=== PATIENT | female | born 1945 | race Two or more races ===

== ENCOUNTER 2025-01-24 18:34 | Inpatient (IN) | payer MEDICARE ==
[~2025-01-24] VITALS: Ht 170.2 cm; Wt 59.0 kg
[2025-01-24] MEDS ORDERED: ATOR10TA PO (18:57)
[2025-01-24] MEDS ORDERED: ACET325C7 PO (18:57)
[2025-01-24] MEDS ORDERED: ACET-2605 PO (18:57)
[2025-01-24] MEDS ORDERED: LIOT5TAB7 PO (18:57)
[2025-01-24] MEDS ORDERED: BISA10SU61 RC (18:57)
[2025-01-24] MEDS ORDERED: SULF1TAB48 PO (18:57)
[2025-01-24] MEDS ORDERED: AMLO-212 PO (18:57)
[2025-01-24] MEDS ORDERED: NA P133E RC (18:57)
[2025-01-24] MEDS ORDERED: INSU100V39 SQ (18:58)
[2025-01-24] MEDS ORDERED: ONDA-104 PO (19:02)
[2025-01-24] MEDS ORDERED: MEGE400O5 PO (19:02)
[2025-01-24] MEDS ORDERED: LOSA25TA27 PO (19:02)
[2025-01-24] MEDS ORDERED: EMPA25TA PO (19:02)
[2025-01-24] MEDS ORDERED: LIDOCAINE 4% PATCH TOP (19:02)
[2025-01-24] MEDS ORDERED: ZINC OXIDE TOP (19:02)
[2025-01-24] MEDS ORDERED: LEVO125T8 PO (19:02)
[2025-01-24] MEDS ORDERED: MAGN400O6 PO (19:02)
[2025-01-24] MEDS ORDERED: POLY17PO4 PO (19:02)
[2025-01-24] MEDS ORDERED: ESCI5TAB PO (19:02)
[2025-01-24 19:12] LABS: BASOPHILS % (AUTO) 0.5 % (0.0-2.0); EOSINOPHILS % (AUTO) 0.7 % (0.0-7.0); HEMATOCRIT 32.5 % (31.2-41.9); HEMOGLOBIN 11.2 g/dL (10.9-14.3); LYMPHOCYTES # (AUTO) 0.8 K/uL (0.8-4.8); LYMPHOCYTES % (AUTO) 23.2 % (20.5-51.5); MEAN CORPUSCULAR HEMOGLOBIN 29.4 uug (24.7-32.8); MEAN CORPUSCULAR HGB CONC 35 g/dL (32.3-35.6); MEAN CORPUSCULAR VOLUME 85.1 fL (75.5-95.3); MONOCYTES # (AUTO) 0.2 K/uL (0.1-1.30); MONOCYTES % (AUTO) 5.9 % (0.0-11.0); NEUTROPHILS # (AUTO) 2.3 K/uL (1.8-8.9); NEUTROPHILS % (AUTO) 69.7 % (38.5-71.5); PLATELET COUNT (AUTO) 100 K/uL (179-408); RED BLOOD CELL COUNT(AUTO) 3.82 MIL/uL (3.63-4.92); RED CELL DISTRIBUTION WIDTH 14.7 % (12.3-17.7); WHITE BLOOD COUNT (AUTO) 3.3 K/uL (3.8-11.8)
[2025-01-24 19:15] LABS: DIFFERENTIAL COMMENT 1
[2025-01-24 19:18] LABS: CALCIUM 8.1 mg/dL (8.5-10.1); CARBON DIOXIDE 28 mmol/L (21-32); CHLORIDE 103 mmol/L (98-107); CREATININE 1.4 mg/dL (0.6-1.3); GLUCOSE 187 mg/dL (74-106); POTASSIUM 4.1 mmol/L (3.5-5.1); SODIUM SERUM 136 mmol/L (136-145); UREA NITROGEN, BLOOD 25 mg/dL (7-18)
[2025-01-24] MEDS: IV NS 1000 ML 1,000 ML IV STA (19:29)
[2025-01-24 19:31] LABS: ALANINE AMINOTRANSFERASE 20 U/L (14-59); ALBUMIN 3.2 g/dL (3.4-5.0); ALKALINE PHOSPHATASE 93 U/L (50-136); ASPARTATE AMINOTRANSFERASE 12 U/L (15-37); BILIRUBIN,DIRECT 0.3 mg/dL (0.0-0.2); BILIRUBIN,TOTAL 0.6 mg/dL (0.2-1.0); NT-PRO BNP 654 pg/mL (0-125); TOTAL PROTEIN, SERUM 6.2 g/dL (6.4-8.2)
[2025-01-24 20:36] LABS: *BILIRUBIN,URIN NEGATIVE (NEGATIVE); *BLOOD, URINE 1+ (NEGATIVE); *CLARITY,URINE SLIGHTLY CLOUDY (CLEAR); *COLOR,URINE YELLOW (YELLOW); *KETONES,URINE NEGATIVE (NEGATIVE); *PROTEIN,URINE 3+ (NEGATIVE); LEUKOCYTE ESTERASE ,URINE 1+ (NEGATIVE); NITRITE, URINE NEGATIVE (NEGATIVE); UGLUCOSE 1+ (NEGATIVE)
[2025-01-24] MEDS ORDERED: DEXTROSE 50% 50 ML DISP.SYRIN IV PRN (20:45)
[2025-01-24] MEDS ORDERED: ONDANSETRON 4 MG/2 ML VIAL IV PRN (20:45)
[2025-01-24] MEDS ORDERED: MAGNESIUM HYDROXIDE 30 ML LIQUID UDC PO PRN (20:45)
[2025-01-24] MEDS ORDERED: ACETAMINOPHEN 325 MG TABLET PO PRN (20:45)
[2025-01-24 20:52] LABS: BACTERIA,URINE FEW /HPF (NONE SEEN); RBC,URINE 0-3 /HPF (0-3); SQUAMOUS EPITHELIAL CELL,UR MODERATE /HPF (NONE SEEN); WBC,URINE 50-80 /HPF (0-3); YEAST,URINE MANY /HPF (NONE SEEN)
[2025-01-24 22:10] VITALS: BP 171/61; TEMP 97.3; O2SAT 98
[2025-01-24] MEDS ORDERED: CEFTRIAXONE /D5W 50ML IVPB **ER PYXIS IV ONE (23:14)
[2025-01-24] MEDS ORDERED: Medication Not On Formulary EA (Acetaminophen (Tylenol) 650 MG) PO SCH (23:30)
[2025-01-24] MEDS: CEFTRIAXONE 1 G in IV DEXTROSE 5% 50 ML IV SCH (23:43)
[2025-01-24] MEDS: BLOOD SUGAR DIAGNOSTIC 1 EACH STRIP VI SCH (23:45)
[2025-01-25] MEDS: IV D5 1/2 NS 1000 ML 1,000 ML IV PRN (03:30)
[2025-01-25 06:09] VITALS: BP 159/62; TEMP 97.9; O2SAT 93
[2025-01-25 07:07] LABS: BASOPHILS % (AUTO) 0.7 % (0.0-2.0); EOSINOPHILS % (AUTO) 0.8 % (0.0-7.0); HEMATOCRIT 34.6 % (31.2-41.9); LYMPHOCYTES # (AUTO) 0.9 K/uL (0.8-4.8); LYMPHOCYTES % (AUTO) 21.4 % (20.5-51.5); MEAN CORPUSCULAR HEMOGLOBIN 29.3 uug (24.7-32.8); MEAN CORPUSCULAR HGB CONC 35 g/dL (32.3-35.6); MEAN CORPUSCULAR VOLUME 84.7 fL (75.5-95.3); MONOCYTES # (AUTO) 0.2 K/uL (0.1-1.30); MONOCYTES % (AUTO) 5.4 % (0.0-11.0); NEUTROPHILS # (AUTO) 2.9 K/uL (1.8-8.9); NEUTROPHILS % (AUTO) 71.7 % (38.5-71.5); PLATELET COUNT (AUTO) 106 K/uL (179-408); RED BLOOD CELL COUNT(AUTO) 4.09 MIL/uL (3.63-4.92); RED CELL DISTRIBUTION WIDTH 14.7 % (12.3-17.7)
[2025-01-25 07:15] LABS: DIFFERENTIAL COMMENT 1
[2025-01-25 07:21] LABS: ALANINE AMINOTRANSFERASE 15 U/L (14-59); ALKALINE PHOSPHATASE 95 U/L (50-136); ASPARTATE AMINOTRANSFERASE 15 U/L (15-37); BILIRUBIN,TOTAL 0.6 mg/dL (0.2-1.0); CARBON DIOXIDE 26 mmol/L (21-32); CHLORIDE 103 mmol/L (98-107); CREATININE 1.2 mg/dL (0.6-1.3); GLUCOSE 129 mg/dL (74-106); PHOSPHOROUS 2.6 mg/dL (2.5-4.9); POTASSIUM 3.8 mmol/L (3.5-5.1); SODIUM SERUM 136 mmol/L (136-145); TOTAL PROTEIN, SERUM 6.2 g/dL (6.4-8.2); UREA NITROGEN, BLOOD 20 mg/dL (7-18)
[2025-01-25] MEDS: EMPAGLIFLOZIN 25 MG TABLET PO SCH (09:00)
[2025-01-25] MEDS: LOSARTAN POTASSIUM 25 MG TABLET PO SCH (09:00)
[2025-01-25] MEDS: MIRALAX 17 GM POWD.PACK PO SCH (09:00)
[2025-01-25] MEDS: AMLODIPINE 5 MG TABLET PO SCH (09:00)
[2025-01-25] MEDS: LEVOTHYROXINE SODIUM 125 MCG TABLET PO SCH (09:00)
[2025-01-25] MEDS: LIOTHYRONINE SODIUM 5 MCG TABLET PO SCH (09:00)
[2025-01-25] MEDS: PANTOPRAZOLE SODIUM 40 MG VIAL IV SCH (09:36)
[2025-01-25] MEDS ORDERED: ACET-73 PO (10:39)
[2025-01-25] MEDS ORDERED: POVI3780 TP (10:45)
[2025-01-25] MEDS ORDERED: POVI37802 TP (10:48)
[2025-01-25] MEDS ORDERED: LACT-47 PO (10:49)
[2025-01-25] MEDS ORDERED: MELA3CAP2 PO (10:55)
[2025-01-25] MEDS ORDERED: ONDA4TAB11 PO (10:59)
[2025-01-25] MEDS ORDERED: QUET25TA36 PO (11:01)
[2025-01-25 11:03] VITALS: BP 175/71; TEMP 98; O2SAT 99
[2025-01-25] MEDS: hydrALAZINE HCL 20 MG/1 ML VIAL IV PRN (11:51)
[2025-01-25] MEDS: INSULIN REGULAR, HUMAN 1000 UNIT/10 ML VIAL SQ PRN (13:36)
[2025-01-25 14:00] VITALS: BP 122/65; O2SAT 95
[2025-01-25 16:23] VITALS: BP 115/54; TEMP 97.6; O2SAT 97
[2025-01-25 19:35] VITALS: BP 92/44; TEMP 97.9; O2SAT 98
[2025-01-25] MEDS: ESCITALOPRAM OXALATE 10 MG TABLET PO SCH (20:08)
[2025-01-26 03:43] LABS: *BILIRUBIN,URIN NEGATIVE (NEGATIVE); *BLOOD, URINE 2+ (NEGATIVE); *CLARITY,URINE TURBID (CLEAR); *COLOR,URINE YELLOW (YELLOW); *KETONES,URINE NEGATIVE (NEGATIVE); *PROTEIN,URINE 3+ (NEGATIVE); LEUKOCYTE ESTERASE ,URINE 3+ (NEGATIVE); NITRITE, URINE NEGATIVE (NEGATIVE); PH,URINE 6.5 (5.0-8.0); UGLUCOSE TRACE (NEGATIVE)
[2025-01-26 03:48] LABS: WBC,URINE 20-50 /HPF (0-3)
[2025-01-26 03:49] LABS: BACTERIA,URINE MODERATE /HPF (NONE SEEN); MUCUS,URINE MANY /LPF (0-FEW); SQUAMOUS EPITHELIAL CELL,UR FEW /HPF (NONE SEEN)
[2025-01-26 05:11] VITALS: BP 136/67; TEMP 97.9; O2SAT 98
[2025-01-26 07:22] LABS: BASOPHILS % (AUTO) 0.5 % (0.0-2.0); EOSINOPHILS % (AUTO) 0.5 % (0.0-7.0); HEMATOCRIT 31.1 % (31.2-41.9); HEMOGLOBIN 10.9 g/dL (10.9-14.3); LYMPHOCYTES # (AUTO) 0.7 K/uL (0.8-4.8); LYMPHOCYTES % (AUTO) 17.5 % (20.5-51.5); MEAN CORPUSCULAR HEMOGLOBIN 29.2 uug (24.7-32.8); MEAN CORPUSCULAR HGB CONC 35 g/dL (32.3-35.6); MEAN CORPUSCULAR VOLUME 83.1 fL (75.5-95.3); MONOCYTES # (AUTO) 0.2 K/uL (0.1-1.30); MONOCYTES % (AUTO) 4.6 % (0.0-11.0); NEUTROPHILS # (AUTO) 3.2 K/uL (1.8-8.9); NEUTROPHILS % (AUTO) 76.9 % (38.5-71.5); PLATELET COUNT (AUTO) 91 K/uL (179-408); RED BLOOD CELL COUNT(AUTO) 3.74 MIL/uL (3.63-4.92); RED CELL DISTRIBUTION WIDTH 14.8 % (12.3-17.7); WHITE BLOOD COUNT (AUTO) 4.2 K/uL (3.8-11.8)
[2025-01-26 07:31] LABS: CALCIUM 7.7 mg/dL (8.5-10.1); CARBON DIOXIDE 25 mmol/L (21-32); CHLORIDE 102 mmol/L (98-107); CREATININE 1.2 mg/dL (0.6-1.3); GLUCOSE 112 mg/dL (74-106); POTASSIUM 3.6 mmol/L (3.5-5.1); SODIUM SERUM 134 mmol/L (136-145); UREA NITROGEN, BLOOD 17 mg/dL (7-18)
[2025-01-26 07:36] LABS: DIFFERENTIAL COMMENT 1
[2025-01-26 08:00] VITALS: TEMP 93.8
[2025-01-26 12:00] VITALS: TEMP 90.9
[2025-01-26 16:00] VITALS: BP 139/61; TEMP 98; O2SAT 98
[2025-01-26 19:20] VITALS: BP 132/68; TEMP 97.8; O2SAT 98
[2025-01-27 01:13] LABS: BASOPHILS % (AUTO) 0.4 % (0.0-2.0); EOSINOPHILS % (AUTO) 0.5 % (0.0-7.0); HEMATOCRIT 31.2 % (31.2-41.9); HEMOGLOBIN 10.7 g/dL (10.9-14.3); LYMPHOCYTES # (AUTO) 0.8 K/uL (0.8-4.8); LYMPHOCYTES % (AUTO) 16.9 % (20.5-51.5); MEAN CORPUSCULAR HEMOGLOBIN 28.8 uug (24.7-32.8); MEAN CORPUSCULAR HGB CONC 34 g/dL (32.3-35.6); MEAN CORPUSCULAR VOLUME 83.7 fL (75.5-95.3); MONOCYTES # (AUTO) 0.3 K/uL (0.1-1.30); MONOCYTES % (AUTO) 5.9 % (0.0-11.0); NEUTROPHILS # (AUTO) 3.7 K/uL (1.8-8.9); NEUTROPHILS % (AUTO) 76.3 % (38.5-71.5); PLATELET COUNT (AUTO) 85 K/uL (179-408); RED BLOOD CELL COUNT(AUTO) 3.73 MIL/uL (3.63-4.92); RED CELL DISTRIBUTION WIDTH 14.5 % (12.3-17.7); WHITE BLOOD COUNT (AUTO) 4.9 K/uL (3.8-11.8)
[2025-01-27 01:26] LABS: DIFFERENTIAL COMMENT 1
[2025-01-27] MEDS: PANTOPRAZOLE SODIUM 40 MG TABLET.DR PO SCH (06:13)
[2025-01-27 07:08] LABS: CALCIUM 7.8 mg/dL (8.5-10.1); CARBON DIOXIDE 25 mmol/L (21-32); CHLORIDE 101 mmol/L (98-107); CREATININE 1.2 mg/dL (0.6-1.3); GLUCOSE 125 mg/dL (74-106); POTASSIUM 3.7 mmol/L (3.5-5.1); SODIUM SERUM 131 mmol/L (136-145); UREA NITROGEN, BLOOD 16 mg/dL (7-18)
[2025-01-27 07:24] VITALS: BP 132/68; TEMP 97.8; O2SAT 98
[2025-01-27 09:41] VITALS: BP 115/61; TEMP 98; O2SAT 98
[2025-01-27] MEDS ORDERED: PROPOFOL 200 MG/20 ML BOTTLE ONE (10:00)
[2025-01-27] MEDS ORDERED: IV NORMAL SALINE 500 ML IV ONE (11:30)
[2025-01-27 11:34] VITALS: BP 109/41; TEMP 97.4; O2SAT 99
[2025-01-27 13:33] VITALS: O2SAT 96
[2025-01-27 15:52] VITALS: BP 113/63; TEMP 98; O2SAT 99
[2025-01-27 19:55] VITALS: BP 120/58; TEMP 98.3; O2SAT 99
[2025-01-27] MEDS: DONEPEZIL 5 MG TABLET PO SCH (20:48)
[2025-01-28 05:31] VITALS: BP 122/62; TEMP 98; O2SAT 95
[2025-01-28 06:24] LABS: BASOPHILS % (AUTO) 0.3 % (0.0-2.0); EOSINOPHILS % (AUTO) 0.2 % (0.0-7.0); HEMATOCRIT 32.1 % (31.2-41.9); HEMOGLOBIN 11.1 g/dL (10.9-14.3); LYMPHOCYTES # (AUTO) 0.8 K/uL (0.8-4.8); LYMPHOCYTES % (AUTO) 16.3 % (20.5-51.5); MEAN CORPUSCULAR HEMOGLOBIN 29.4 uug (24.7-32.8); MEAN CORPUSCULAR HGB CONC 35 g/dL (32.3-35.6); MEAN CORPUSCULAR VOLUME 84.7 fL (75.5-95.3); MONOCYTES # (AUTO) 0.2 K/uL (0.1-1.30); MONOCYTES % (AUTO) 3.9 % (0.0-11.0); NEUTROPHILS # (AUTO) 3.9 K/uL (1.8-8.9); NEUTROPHILS % (AUTO) 79.3 % (38.5-71.5); PLATELET COUNT (AUTO) 78 K/uL (179-408); RED BLOOD CELL COUNT(AUTO) 3.79 MIL/uL (3.63-4.92); RED CELL DISTRIBUTION WIDTH 14.7 % (12.3-17.7); WHITE BLOOD COUNT (AUTO) 4.9 K/uL (3.8-11.8)
[2025-01-28 06:29] LABS: CALCIUM 7.9 mg/dL (8.5-10.1); CARBON DIOXIDE 22 mmol/L (21-32); CHLORIDE 104 mmol/L (98-107); CREATININE 1.2 mg/dL (0.6-1.3); GLUCOSE 135 mg/dL (74-106); POTASSIUM 3.7 mmol/L (3.5-5.1); SODIUM SERUM 134 mmol/L (136-145); UREA NITROGEN, BLOOD 15 mg/dL (7-18)
[2025-01-28 06:46] LABS: DIFFERENTIAL COMMENT 1
[2025-01-28 08:42] VITALS: BP 114/51; TEMP 97.8; O2SAT 96
[2025-01-28] MEDS: MEDIHONEY= THERAHONEY 1.5 OZ TUBE TOP SCH (08:44)
[2025-01-28 11:15] VITALS: BP 133/54; TEMP 97.6; O2SAT 99
[2025-01-28] MEDS: GLUCERNA 1.2 1000ML LIQUID GT PRN (12:27)
[2025-01-28] MEDS: FREE WATER VIA TUBE FEEDING GT SCH (12:30)
[2025-01-28 12:59] LABS: LYMPHOCYTES % (MANUAL) 0 % (20-40); NEUTROPHILS % (MANUAL) 0 % (42-75)
[2025-01-28] MEDS: CEphaleXIN 500 MG CAPSULE PO SCH (14:32)
[2025-01-28] MEDS: IV D5/ 0.9% NACL 1,000 ML IV SCH (15:33)
[2025-01-28 15:46] VITALS: BP 119/57; TEMP 97.5; O2SAT 100
[2025-01-28 16:01] VITALS: O2SAT 96
[2025-01-28] MEDS ORDERED: ACETAMINOPHEN 325 MG TABLET GT PRN (17:38)
[2025-01-28] MEDS ORDERED: MAGNESIUM HYDROXIDE 30 ML LIQUID UDC GT PRN (17:42)
[2025-01-28 19:00] VITALS: BP 118/50; TEMP 97.9; O2SAT 100
[2025-01-28] MEDS: DONEPEZIL 5 MG TABLET GT SCH (21:02)
[2025-01-28] MEDS: ESCITALOPRAM OXALATE 10 MG TABLET GT SCH (21:03)
[2025-01-28] MEDS: CEphaleXIN 500 MG CAPSULE GT SCH (21:03)
[2025-01-28] MEDS: ZOLPIDEM 5 MG TABLET PO ONE (21:22)
[2025-01-29 06:00] VITALS: BP 112/84; TEMP 97.6; O2SAT 98
[2025-01-29] MEDS: PANTOPRAZOLE ORAL SUSPENSION 40 MG SUSPDR.PKT GT SCH (06:01)
[2025-01-29] MEDS: AMLODIPINE 5 MG TABLET GT SCH (09:04)
[2025-01-29] MEDS: LEVOTHYROXINE SODIUM 125 MCG TABLET GT SCH (09:05)
[2025-01-29] MEDS: LIOTHYRONINE SODIUM 5 MCG TABLET GT SCH (09:05)
[2025-01-29] MEDS: LOSARTAN POTASSIUM 25 MG TABLET GT SCH (09:06)
[2025-01-29] MEDS: MIRALAX 17 GM POWD.PACK GT SCH (09:06)
[2025-01-29] MEDS: EMPAGLIFLOZIN 25 MG TABLET GT SCH (09:12)
[2025-01-29] MEDS: REMEDY ESSENTIAL ZINC PASTE 113 GM TP PRN (09:12)
[2025-01-29 11:35] VITALS: BP 115/49; TEMP 98; O2SAT 96
[2025-01-29] MEDS ORDERED: AMLO-212 GT (12:30)
[2025-01-29] MEDS ORDERED: CEPH500C2 GT (12:30)
[2025-01-29] MEDS ORDERED: MAGN400O6 GT (12:30)
[2025-01-29] MEDS ORDERED: LIOT5TAB7 GT (12:30)
[2025-01-29] MEDS ORDERED: MENT113O TP (12:30)
[2025-01-29] MEDS ORDERED: ESCI-9 GT (12:30)
[2025-01-29] MEDS ORDERED: EMPA25TA GT (12:30)
[2025-01-29] MEDS ORDERED: ACET325C7 GT (12:30)
[2025-01-29] MEDS ORDERED: Glucerna 1.2 GT (12:30)
[2025-01-29] MEDS ORDERED: PANT40SU2 GT (12:30)
[2025-01-29] MEDS ORDERED: POLY17PO4 GT (12:30)
[2025-01-29] MEDS ORDERED: DONE5TAB34 GT (12:30)
[2025-01-29] MEDS ORDERED: LEVO125T8 GT (12:30)
[2025-01-29] MEDS ORDERED: LOSA25TA27 GT (12:30)
[2025-01-29] MEDS ORDERED: ATOR10TA GT (12:30)
[2025-01-29 16:10] VITALS: O2SAT 96
[2025-01-29 16:42] VITALS: BP 118/54
== END 2025-01-29 18:00 | DRG 682 ==
LOC: ER 18:34 → MEDSURG3 21:21
PROVIDERS: ADMIT Nurse Practitioner Acute Care; ATTEND Nurse Practitioner Acute Care
PROC: 0DH63UZ Insertion of Feeding Device into Stomach, Percutaneous Approach (ICD-10-PCS; principal; 2025-01-27 10:30)
PROC: 3E0G76Z Introduction of Nutritional Substance into Upper GI, Via Natural or Artificial Opening (ICD-10-PCS; 2025-01-27 10:30)
DX: N17.0 Acute kidney failure with tubular necrosis (principal); E43 Unspecified severe protein-calorie malnutrition; G93.41 Metabolic encephalopathy; N39.0 Urinary tract infection, site not specified; Z68.1 Body mass index [BMI] 19.9 or less, adult; R64 Cachexia; D68.59 Other primary thrombophilia; E87.1 Hypo-osmolality and hyponatremia; E86.0 Dehydration; R62.7 Adult failure to thrive; E88.09 Other disorders of plasma-protein metabolism, not elsewhere classified; R13.10 Dysphagia, unspecified; D69.6 Thrombocytopenia, unspecified; E11.40 Type 2 diabetes mellitus with diabetic neuropathy, unspecified; E11.621 Type 2 diabetes mellitus with foot ulcer; L97.522 Non-pressure chronic ulcer of other part of left foot with fat layer exposed; L97.512 Non-pressure chronic ulcer of other part of right foot with fat layer exposed; F03.90 Unspecified dementia, unspecified severity, without behavioral disturbance, psychotic disturbance, mood disturbance, and anxiety; I12.9 Hypertensive chronic kidney disease with stage 1 through stage 4 chronic kidney disease, or unspecified chronic kidney disease; D64.9 Anemia, unspecified; E11.22 Type 2 diabetes mellitus with diabetic chronic kidney disease; N18.9 Chronic kidney disease, unspecified; E03.9 Hypothyroidism, unspecified; Z91.81 History of falling; I25.10 Atherosclerotic heart disease of native coronary artery without angina pectoris; E78.5 Hyperlipidemia, unspecified; Z79.4 Long term (current) use of insulin; Z79.84 Long term (current) use of oral hypoglycemic drugs; Z79.899 Other long term (current) drug therapy; Z74.09 Other reduced mobility
CPT/HCPCS: 36415; 70450; 71045; 83735; 84100; 85025; 85610; 85730; 87086; 93005; 94760; A4606; A4663; A6209; A6213; C1758; G0378; J0278; J0360; J0696; J2470; J3490; J7040; J7042